=== PATIENT | male | born 2000 | race Caucasian/White ===

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

== ENCOUNTER 2024-02-13 09:14 | Emergency (ER) | payer SELFPAY ==
[2024-02-13 09:21] VITALS: BP 162/66; PULSE 80; RESP 20; TEMP 36.6; O2SAT 100
--- NOTE | 2024-02-13 09:40 | ED.GENADULT ---
HPI - General Adult General Chief complaint: Abdominal Pain Stated complaint: Abdominal Pain History of Present Illness HPI narrative: Pt is a 23 y/o male, presents to with 5 day hx of nausea, intermittent vomiting and heartburn symptoms, without associated fevers, chills, focal abdominal pain or diarrhea. he denies hematemesis or hematochezia. He does endorse recurrent GERD symptoms but denies taking any medication for symptom relief. He was given a dose of Zofran by his grandfather and notes his symptoms did improve. He last vomited yesterday but was sent by his employer for a note excusing his absence this week. He denies any other associated symptoms. Related Data Home Medications Medication Instructions Recorded Confirmed albuterol sulfate 90 mcg/actuation 2 puff inhalation Q4H PRN sob 10/08/20 02/13/24 aerosol inhaler Allergies Allergy/AdvReac Type Severity Reaction Status Date / Time No Known Allergies Allergy Verified 02/13/24 09:31 Review of Systems Gastrointestinal: Comments: refer to HPI Exam Const: General: healthy appearing, no acute distress and alert Nutritional Appearance: well nourished Orientation/consciousness: patient oriented x3 Limitations: no limitations HENMT: Head: normal to inspection Ears: external ears normal and TM's normal bilaterally Face/Nose/Sinus: Normal external nose present and Normal nares present Mouth: Yes Normal oral and palatal mucosa present, Yes lip normal and Yes moist mucous membranes Eyes: Conjunctivae: conjunctivae normal Pupils: Equal, round and reactive pupils present EOM: EOMs intact bilaterally Neck: Neck: normal visual inspection, no lymphadenopathy and no meningeal signs Resp: Effort & Inspection: normal respiratory effort Auscultation: clear to auscultation bilaterally Cardio: Rate: regular rate Rhythm: regular rhythm GI: GI Palp: Yes Soft to palpation, No Tenderness to palpation present (GI), No Guarding due to palpation present (GI), No Rigid due to palpation, No Hernia present, No Palpable mass present and No Rebound tenderness present Auscultation: normal bowel sounds Skin: General skin exam: normal color Rashes: no rashes Wounds: no wounds Neuro: General: patient oriented x3, moves all extremities, no meningeal signs, no focal motor deficits and CN's II-XI intact bilaterally Cranial nerves: Yes Nystagmus not present Speech: normal speech Gait exam (Neuro): Normal gait present Extrem: General: normal to inspection Course Course Emergency Course: pt's symptoms are resolved at present. Suspect some degree of chronic GERD, as he denies ETOH or THC use, lowering concern for gastritis. Will treat with Protonix, note for work to return tomorrow. Pt is agreeable with plan. FU with PCP stressed, as a referral to GI may be indicated if symptoms are not improving. Level of Care: Express Care Visit ([id number]) Vital Signs Vital signs: Vital Signs Temperature 36.6 C 02/13/24 09:21 Pulse Rate 80 02/13/24 09:21 Respiratory Rate 20 02/13/24 09:21 Blood Pressure 162/66 H 02/13/24 09:21 Pulse Oximetry 100 02/13/24 09:21 Oxygen Delivery Room Air 02/13/24 09:21 Temperature 36.6 C 02/13/24 09:21 Pulse Rate 80 02/13/24 09:21 Respiratory Rate 20 02/13/24 09:21 Blood Pressure 162/66 H 02/13/24 09:21 Pulse Oximetry 100 02/13/24 09:21 Oxygen Delivery Room Air 02/13/24 09:21 Medical Decision Making [facility] Narrative Medical decision making narrative: Protonix, FU with PCP for GI referral as indicated. Differential Diagnosis Differential Diagnosis: GerD, gastritis, gastroenteritis Vital Signs Vital Signs: Vital Signs Temperature 36.6 C 02/13/24 09:21 Pulse Rate 80 02/13/24 09:21 Respiratory Rate 20 02/13/24 09:21 Blood Pressure 162/66 H 02/13/24 09:21 Pulse Oximetry 100 02/13/24 09:21 Oxygen Delivery Room Air 02/13/24 09:21 Temperature 36.6 C 02/13/24 09:21 Pulse Rat
== END 2024-02-13 09:50 | disposition home or self-care (01) ==
PROVIDERS: Emergency Provider Nurse Practitioner Family
DX: K21.9 Gastro-esophageal reflux disease without esophagitis (principal)
CPT/HCPCS: 99213; G0463

== ENCOUNTER 2024-03-27 14:54 | Emergency (ER) | payer SELFPAY ==
[2024-03-27 14:58] VITALS: BP 121/73; PULSE 90; RESP 18; TEMP 36.6; O2SAT 99
--- NOTE | 2024-03-27 16:35 | ED.URI ---
HPI - URI/Sore Throat General Chief Complaint: Upper Respiratory Infection Stated Complaint: sore throat Time Seen by Provider: 03/27/24 15:06 Source: patient, RN notes reviewed and old records reviewed Mode of arrival: ambulatory Limitations: no limitations History of Present Illness HPI Narrative: 23-year-old male to Express Care for complaint of sore throat, nausea and vomiting that started yesterday. Patient denies fever, allergies, pertinent medical history. Patient able to tolerate fluids by mouth. Patient in no acute distress. Patient requesting work note. Related Data Home Medications Medication Instructions Recorded Confirmed No Home Medications 03/27/24 03/27/24 Allergies Allergy/AdvReac Type Severity Reaction Status Date / Time No Known Allergies Allergy Verified 03/27/24 15:09 Review of Systems Review of Systems: All systems reviewed & are unremarkable except as noted in HPI and below Constitutional: Constitutional: Reports as per HPI, Denies fatigue and Denies fever(s) Eyes: Eyes: Reports no additional eye complaints ENT: Reports as per HPI, Denies headache(s), Denies nasal congestion, Denies nasal discharge and Reports sore throat Cardiovascular: Cardiovascular: Reports no additional cardiovascular complaints, Denies chest pain and Denies dyspnea Respiratory: Respiratory: Reports no additional respiratory complaints, Denies cough and Denies dyspnea Gastrointestinal: Gastrointestinal: Reports nausea and Reports vomiting Musculoskeletal: Musculoskeletal: Reports no additional musculoskeletal complaints Neurologic: Reports system reviewed and no additional complaints, except as documented Psychiatric: Psychiatric: Reports no additional psychiatric complaints PMFSH Comments At the time of my signature, I reviewed and agree with the nursing past medical, surgical, social, and family history. There is no relevant family history pertinent to the patient complaint. Exam Const: General: cooperative, healthy appearing, comfortable, no acute distress, alert and well nourished Nutritional Appearance: well nourished Orientation/consciousness: patient oriented x3 Limitations: no limitations HENMT: Head: normal to inspection Ears: external ears normal Face/Nose/Sinus: Normal external nose present, Normal nares present, normal facial exam, No erythema and No edema Face and sinus: normal facial exam, no erythema and no edema Mouth: Yes Normal oral and palatal mucosa present Eyes: General: appearance normal, both eyes and all related structures Neck: Neck: normal visual inspection, full ROM and no meningeal signs Lymphatic: no lymphadenopathy noted and no lymphedema noted Chest: Chest palpation & inspection: normal inspection of the chest Resp: Effort & Inspection: normal respiratory effort and able to speak in complete sentences Auscultation: clear to auscultation bilaterally Cardio: Jugular venous distension: no JVD Rate: regular rate Rhythm: regular rhythm Back/Spine/Pelvis: Cervical Spine: cervical ROM normal Skin: General skin exam: normal color, no rashes or lesions noted and turgor normal Neuro: General: patient oriented x3, gait normal, moves all extremities and no meningeal signs Speech: normal speech Gait exam (Neuro): Normal gait present Extrem: General: normal to inspection, full ROM and capillary refill normal Psych: Appearance: grossly normal and well kempt Course Course Emergency Course: Some parts of this dictation were generated by voice recognition software and may contain typographical and/or grammatical inaccuracies. Level of Care: Express Care Visit Vital Signs Vital signs: Vital Signs Temperature 36.6 C 03/27/24 14:58 Pulse Rate 90 03/27/24 14:58 Respiratory Rate 18 03/27/24 14:58 Blood Pressure 121/73 03/27/24 14:58 Pulse Oximetry 99 03/27/24 14:58 Oxygen Delivery Room Air 03/27/24 14:58 Temperature 36.6 C 03/27/24 14:5
== END 2024-03-27 15:27 | disposition home or self-care (01) ==
PROVIDERS: Emergency Provider Nurse Practitioner Family
DX: J06.9 Acute upper respiratory infection, unspecified (principal); J45.909 Unspecified asthma, uncomplicated
CPT/HCPCS: 87081; 99213; G0463

== ENCOUNTER 2024-04-03 11:21 | Emergency (ER) | payer SELFPAY ==
[2024-04-03 11:26] VITALS: BP 108/75; PULSE 80; RESP 20; TEMP 36.7; O2SAT 100
--- NOTE | 2024-04-03 11:35 | ED.WOUNDLAC ---
HPI - Wound/Laceration General Chief Complaint: Wound/Laceration Stated Complaint: Right ankle lac/injury History of Present Illness HPI narrative: Patient presents with a laceration to his right inner ankle that occurred yesterday. Patient states he dropped an Axe on his ankle yesterday no bleeding no bruising no deformity noted. Patient states he needs a work note for today. Related Data Home Medications Medication Instructions Recorded Confirmed No Home Medications 03/27/24 03/27/24 Allergies Allergy/AdvReac Type Severity Reaction Status Date / Time No Known Allergies Allergy Verified 03/27/24 15:09 Review of Systems Review of Systems: CONSTITUTIONAL: Denies fever, chills, or sweats. EYES: Denies visual changes, redness, or discharge. ENT: Denies rhinorrhea, congestion, sore throat, or otalgia. CARDIOVASCULAR: Denies chest pain, palpitations, or edema. RESPIRATORY: Denies cough or dyspnea. GASTROINTESTINAL: Denies abdominal pain, nausea, vomiting, or diarrhea. GENITOURINARY: Denies dysuria or hematuria. SKIN: Denies rash or itching. MUSCULOSKELETAL: Denies back pain, joint pain, or myalgia. NEUROLOGIC: Denies headache, numbness, or weakness. PSYCHIATRIC: Denies anxiety or depression. PMFSH Comments At time of signature, agree with nursing past medical, surgical, social and family history. There is no relevant family history pertinent to the presenting complaint Exam Narrative: GENERAL: Well-appearing, well-nourished, and in no acute distress. HEAD: Normocephalic, atraumatic. EYES: PERRLA and EOMI. ENT: Nares clear, no rhinorrhea or epistaxis. Mucous membranes moist. NECK: Supple. CHEST: Clear to auscultation. No respiratory distress. HEART: Regular rate and rhythm. No murmur heard. Normal peripheral pulses. ABDOMEN: Soft, nontender, nondistended, normal active bowel sounds. EXTREMITIES: Normal range of motion. No edema. SKIN: Warm, dry, no rash. 0.5 cm laceration to right in her ankle edges well-approximated superficial laceration no bleeding at present , occurred over 12 hours ago. NEURO: No focal deficits. Alert and oriented x3. [place] Coma Scale Eye Opening: Spontaneous 4 Abhinav Coma Scale Motor: Obeys Commands 6 [place] Coma Scale Verbal: Oriented 5 [place] Coma Scale Total 15 Course Course Level of Care: Express Care Visit Vital Signs Vital signs: Vital Signs Temperature 36.7 C 04/03/24 11:26 Pulse Rate 80 04/03/24 11:26 Respiratory Rate 20 04/03/24 11:26 Blood Pressure 108/75 04/03/24 11:26 Pulse Oximetry 100 04/03/24 11:26 Oxygen Delivery Room Air 04/03/24 11:26 Temperature 36.7 C 04/03/24 11:26 Pulse Rate 80 04/03/24 11:26 Respiratory Rate 20 04/03/24 11:26 Blood Pressure 108/75 04/03/24 11:26 Pulse Oximetry 100 04/03/24 11:26 Oxygen Delivery Room Air 04/03/24 11:26 Discussed wound care with patient discussed wound is over 12 hours old will not repair due to age of wound. Edges well approximated no bleeding noted. Discharge Plan Discharge Clinical Impression: Laceration Patient Disposition: Home, Self-Care Condition: Stable Instructions: Laceration (DC) Additional Instructions: Keep the area clean and dry No continuous water contact like dishes or swimming Antibiotic ointment to the area 3-4 times a day dressing of choice watch for infection--redness, swelling, drainage recheck with PCP if further concerns or problems -If you have any worsening of symptoms or any other concerns please go to the ED immediately. Prescriptions: No Action No Home Medications Follow-up/Referrals: PHYSICIAN,MEDICAL CHIEF TECHNICIAN [Primary Care Provider] - Stand Alone Forms: Work/School Release IP
== END 2024-04-03 11:48 | disposition home or self-care (01) ==
PROVIDERS: Emergency Provider Nurse Practitioner Family
DX: S91.011A Laceration without foreign body, right ankle, initial encounter (principal); W27.0XXA Contact with workbench tool, initial encounter; J45.909 Unspecified asthma, uncomplicated
CPT/HCPCS: 99212; G0463

== ENCOUNTER 2024-04-20 08:52 | Emergency (ER) | payer MEDICAID, SELFPAY ==
[2024-04-20 08:58] VITALS: BP 126/68; PULSE 62; RESP 16; TEMP 37.2; O2SAT 100
--- NOTE | 2024-04-20 09:19 | ED.URI ---
HPI - URI/Sore Throat General Chief Complaint: Upper Respiratory Infection Stated Complaint: Vomiting/Sore Throat Time Seen by Provider: 04/20/24 09:20 Source: patient Mode of arrival: ambulatory Limitations: no limitations History of Present Illness HPI Narrative: 24 yo M presents with c/o upset stomach, cramping, N/V, fatigue for 3 days. Had fever for 1 day. Also c/o sore throat and headache. Denies cough congestion. Last vomited this morning. Is able to keep down some water. All systems reviewed and negative except as noted above. Related Data Allergies Allergy/AdvReac Type Severity Reaction Status Date / Time No Known Allergies Allergy Verified 03/27/24 15:09 Review of Systems Review of Systems: CONSTITUTIONAL: Reports fever, chills, or sweats. EYES: Denies visual changes, redness, or discharge. ENT: Denies rhinorrhea, congestion. Reports sore throat. Denies otalgia. CARDIOVASCULAR: Denies chest pain, palpitations, or edema. RESPIRATORY: Denies cough or dyspnea. GASTROINTESTINAL: Reports abdominal cramping, nausea, vomiting. Denies diarrhea. GENITOURINARY: Denies dysuria or hematuria. SKIN: Denies rash or itching. MUSCULOSKELETAL: Denies back pain, joint pain, or myalgia. NEUROLOGIC: Denies headache, numbness, or weakness. PSYCHIATRIC: Denies anxiety or depression. All other systems reviewed are negative, except as documented in HPI. PMFSH Comments At time of signature, agree with nursing past medical, surgical, social and family history. There is no relevant family history pertinent to the presenting complaint. Exam Narrative: GENERAL: This is a well-nourished, well-developed patient, in no apparent distress. HEAD: normocephalic, atraumatic. EYES: PERRL. Sclera clear/white. Vision is grossly intact. EARS: External ears normal, auditory canals clear and without drainage, TMs normal without perforation. Hearing grossly intact. NOSE: External nose normal with no obvious nasal discharge, nares without redness, no rhinorrhea. THROAT: Mucous membranes moist, mild erythema, tonsils 1+ bilateral without exudates. NECK: Neck supple, non-tender without lymphadenopathy, masses or thyromegaly. CARDIOVASCULAR: Regular rate and rhythm without murmurs, gallops, or rubs. RESPIRATORY: Clear to auscultation. Breath sounds equal bilaterally. No wheezes, rales, or rhonchi. SKIN: warm, Dry, intact with no suspicious lesions or rash, good texture and turgor. NEURO: awake, alert, and oriented to person, place and time. There were no obvious focal neurologic abnormalities. EXTREMITIES: No joint tenderness, effusion, or edema noted. Course Course Level of Care: Express Care Visit Vital Signs Vital signs: Vital Signs Temperature 37.2 C 04/20/24 08:58 Pulse Rate 62 04/20/24 08:58 Respiratory Rate 16 04/20/24 08:58 Blood Pressure 126/68 04/20/24 08:58 Pulse Oximetry 100 04/20/24 08:58 Oxygen Delivery Room Air 04/20/24 08:58 Temperature 37.2 C 04/20/24 08:58 Pulse Rate 62 04/20/24 08:58 Respiratory Rate 16 04/20/24 08:58 Blood Pressure 126/68 04/20/24 08:58 Pulse Oximetry 100 04/20/24 08:58 Oxygen Delivery Room Air 04/20/24 08:58 Reviewed MDM - URI/Sore Throat MDM Narrative Medical decision making narrative: No abdominal tenderness on exam. Will treat with Bentyl and Zofran. Recommend hydrating at home. Will go to the ER for any worsening of symptoms. Patient nontoxic. Will wait for strep culture prior to treating with antibiotics. Patient is aware of diagnosis, understands and agrees to treatment plan. Anticipatory guidance given. Patient agrees to follow-up as directed and is aware of reasons to seek care at the emergency department. Portions of this record may have been created with voice recognition software Differential Diagnosis Differential diagnosis: Likely viral infection and pharyngitis Lab Data Labs: Influenza A Screen Negative
== END 2024-04-20 09:35 | disposition home or self-care (01) ==
PROVIDERS: Emergency Provider Nurse Practitioner Family
DX: B34.9 Viral infection, unspecified (principal); Z20.822 Contact with and (suspected) exposure to COVID-19
CPT/HCPCS: 87081; 87426; 87804; 87880; 99213; G0463